=== PATIENT | female | born 1960 | race Caucasian/White ===

== ENCOUNTER → 2022-01-22 10:13 | Outpatient (CLI) | payer OTHER, SELFPAY ==
--- NOTE | 2022-01-22 10:16 | DI.RAD.S_ITS ---
PROCEDURE: XR WRIST RT MIN 3V INDICATIONS: wrist pain TECHNIQUE: 4 views of the wrist were acquired. COMPARISON: None. FINDINGS: Bones: No fractures or dislocations. No suspicious bony lesions. Degenerative changes are seen throughout, which are most prominent involving the 1st carpometacarpal joint. Milder degenerative changes are seen elsewhere. Note is made of negative ulnar variance. This can predispose to development of AVN of the lunate. However, no findings of AVN of the lunate are seen on these plain films. Scaphoid view: No navicular fractures are seen. Soft tissues: No suspicious soft tissue calcifications. IMPRESSION: Degenerative changes are seen, without an acute plain film abnormality. If it would be helpful for clinical management decision making, please consider a dedicated, scheduled wrist MRI for further evaluation (assuming that there is no contraindication). If there is strong clinical concern for a ligamentous abnormality, this should be performed according to the MR arthrogram protocol. Dictated by: Brenton Spear M.D. on 01/22/2022 at 9:44 Approved by: Brenton Spear M.D. on 01/22/2022 at 9:49
== END ==
PROVIDERS: Referring Provider Nurse Practitioner Family; Visit Provider Nurse Practitioner Family
DX: S69.91XA Unspecified injury of right wrist, hand and finger(s), initial encounter (principal); X58.XXXA Exposure to other specified factors, initial encounter
CPT/HCPCS: 73110